=== PATIENT | female | born 1970 | race Caucasian/White ===

== ENCOUNTER → 2023-11-17 13:19 | Outpatient (BNVA) | payer MEDICAID, SELFPAY | PROVIDERS: PCP Nurse Practitioner; Visit Provider Nurse Practitioner | DX: R50.9 Fever, unspecified (principal); R53.83 Other fatigue | CPT/HCPCS: 87400; 87426 ==

== ENCOUNTER → 2023-11-27 09:11 | Outpatient (BNVA) | payer MEDICAID, OTHER, SELFPAY | PROVIDERS: PCP Nurse Practitioner; Referring Provider Nurse Practitioner; Visit Provider Nurse Practitioner | DX: R53.83 Other fatigue (principal); Z76.89 Persons encountering health services in other specified circumstances; R73.09 Other abnormal glucose | CPT/HCPCS: 80053; 80061; 83036; 84443; 85025 ==